=== PATIENT | male | born 2000 | race Two or more races ===

== ENCOUNTER 2020-03-01 10:15 | Emergency (ER) | payer OTHER ==
[~2020-03-01] VITALS: Ht 188 cm; Wt 112.4 kg
--- NOTE | 2020-03-01 10:54 | NUR ---
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
--- NOTE | 2020-03-01 11:24 | NUR ---
PT TO XR
[2020-03-01] MEDS ORDERED: MAALOX/HYOSCYAMINE/LIDOCAINE 45 ML BTL PO ONE (11:30)
[2020-03-01] MEDS ORDERED: MAALOX/HYOSCYAMINE/LIDOCAINE 45 ML BTL ONE (11:31)
[2020-03-01 12:03] VITALS: BP 115/71
--- NOTE | 2020-03-01 12:13 | NUR ---
ALL RESULTS BACK, PT FOR RECHECK. PT STATES EPIGASTRIC PAIN IS 0/10 AT THIS TIME.
== END 2020-03-01 12:52 | disposition home or self-care (01) ==
LOC: ED 11:15
DX: K29.20 Alcoholic gastritis without bleeding (principal); R20.0 Anesthesia of skin; R94.31 Abnormal electrocardiogram [ECG] [EKG]
CPT/HCPCS: 72050; 93005; 99284